=== PATIENT | female | born 1940 | race Caucasian/White ===

== ENCOUNTER 2017-05-26 10:34 | Outpatient (CLI) | payer MEDICARE ==
--- NOTE | 2017-05-26 13:32 | XRAY Report ---
THREE VIEW LEFT SHOULDER: 05/26/2017 CLINICAL INDICATION: Injury, pain. FINDINGS: Internal and external rotational views and a scapular Y view of the left shoulder demonstrate a mildly displaced distal clavicular fracture. No dislocation is seen. No radiopaque foreign body is appreciated in the soft tissues. IMPRESSION: MILDLY DISPLACED DISTAL CLAVICULAR FRACTURE. TD: 05/26/2017 13:31
== END 2017-05-26 10:35 | disposition home or self-care (01) ==
LOC: DI.S 10:34
PROVIDERS: ATTEND Registered Nurse
DX: S42.032A Displaced fracture of lateral end of left clavicle, initial encounter for closed fracture (principal)

== ENCOUNTER 2017-08-23 13:22 | Inpatient (IN) | payer MEDICARE ==
--- NOTE | 2017-08-23 13:40 | ED Physician Documentation ---
History of Present Illness - Stated complaint Stated Complaint: RT SIDE FACIAL SWELLING/TROUBLE SPEAKING - Chief complaint Chief Complaint: General - History obtained from History obtained from: Patient, Family (son) - History of Present Illness Timing: Other (Over the last 2 days she is developed right-sided facial swelling that is slightly painful and right ear pain without changes in her hearing associated with she thinks changes in her voice. She wonders if she might have a fever but she has had no measured fevers. She notes no other new neurologic symptoms, she has had trouble with her left leg but that is not new, that has been going on for years.) Review of Systems Ten Systems: 10 systems reviewed and negative Constitutional: reports: Chills Ears: reports: Ear pain Nose: denies: Rhinorrhea / runny nose, Congestion Cardiac: denies: Chest pain / pressure, Palpitations Respiratory: denies: Dyspnea, Cough PD PAST MEDICAL HISTORY - Past Medical History Cardiovascular: None Respiratory: None Endocrine/Autoimmune: None GI: None : Incontinence HEENT: None Psych: None Musculoskeletal: Osteoarthritis Derm: None - Present Medications Home Medications: Ambulatory Orders Medication Instructions Recorded Confirmed Cephalexin [Keflex] 500 mg PO QID #40 capsule 08/23/17 - Allergies Allergies/Adverse Reactions: Allergies Allergy/AdvReac Type Severity Reaction Status Date / Time penicillin V Allergy Unknown Verified 08/23/17 13:54 Penicillins Allergy Unknown Verified 08/23/17 13:48 Sulfa (Sulfonamide Allergy Unknown Verified 08/23/17 14:56 Antibiotics) - Social History Smoking Status: Never smoker PD ED PE NORMAL - Vitals Vital signs reviewed: Yes - General General: Alert and oriented X 3, No acute distress - HEENT HEENT: PERRL, EOMI, Other (She has warmth and swelling of the right side of the face, that I would describe as mild to moderate basically from the forehead down to the angle of the jaw and back to the ear with mastoid tenderness and significant postauricular adenopathy on the right.) - Neck Neck: Supple, no meningeal sign, No bony TTP - Cardiac Cardiac: RRR, No murmur - Respiratory Respiratory: No respiratory distress, Clear bilaterally - Abdomen Abdomen: Soft, Non tender - Back Back: No CVA TTP, No spinal TTP - Derm Derm: Normal color, Warm and dry - Neuro Neuro: Alert and oriented X 3, Normal speech Eye Opening: Spontaneous Motor: Obeys Commands Verbal: Oriented GCS Score: 15 - Psych Psych: Normal mood, Normal affect Results - Vitals Vitals: Vital Signs - 24 hr 08/23/17 08/23/17 08/23/17 13:27 14:12 16:39 Temperature 37.4 C Heart Rate 77 67 65 Respiratory 18 16 16 Rate Blood Pressure 168/82 H 140/61 H 132/65 H O2 Saturation 100 99 100 08/23/17 18:21 Temperature 38.3 C H Heart Rate 70 Respiratory 18 Rate Blood Pressure 128/53 L O2 Saturation 98 Oxygen O2 Source Room air - Labs Labs: Laboratory Tests 08/23/17 08/23/17 08/23/17 13:30 13:45 13:45 WBC 9.7 RBC 4.16 L Hgb 13.6 Hct 39.4 MCV 94.8 MCH 32.8 H MCHC 34.6 RDW 13.1 Plt Count 144 MPV 8.9 Neut # (Auto) 7.9 H Lymph # (Auto) 1.0 L [place] # (Auto) 0.9 Eos # (Auto) 0.0 Baso # (Auto) 0.0 Absolute Nucleated RBC 0.00 Nucleated RBC % 0.0 Sodium 127 L Potassium 4.0 Chloride 93 L Carbon Dioxide 25 Anion Gap 9.0 BUN 10 Creatinine 0.6 Estimated GFR (MDRD) 97 Glucose 111 H POC Whole Bld Glucose 103 H Calcium 8.7 Total Bilirubin 1.2 H AST 22 ALT 18 Alkaline Phosphatase 54 Total Protein 6.9 Albumin 3.8 Globulin 3.1 Albumin/Globulin Ratio 1.2 Lipase 24 - Rads (name of study) Ct Head and face with Radiology: EMP read contemporaneously (Right facial cellulitis without evidence of abscess or mastoiditis.) PD MEDICAL DECISION MAKING - ED course ED course: 77-year-old woman with right facial cellulitis and a concern for mastoiditis clinically, I spoke with the radiologist here who told me that CT with IV contrast is the preferred modality to screen for this and was done and negative. However prior to discharge which I had planned and receiving 1 g of Rocephin IV she became febrile and very unsteady on her feet. The IV was replaced and vancomycin and blood cultures were ordered and she will be admitted for further evaluation and treatment. Spoke with Dr. Latham for admission at 7:35 PM. Departure - Departure Disposition: [facility] DC/Xfer Clinical Impression: Facial cellulitis Condition: Good Record reviewed to determine appropriate education?: Yes Instructions: ED Cellulitis Facial Prescriptions: Cephalexin [Keflex] 500 mg PO QID #40 capsule Comments: Follow-up with Rain Grossman in a day or 2, return for recheck if unable to follow up with her and not much better. Return anytime if worse or for high fever.
[2017-08-23 13:53] LABS: BASOPHILS % (AUTO) 0.2 %; EOSINOPHILS % (AUTO) 0.1 %; HGB - HEMOGLOBIN 13.6 g/dL (12.0-16.0); MEAN CORPUSCULAR HEMOGLOBIN 32.8 pg (27.0-31.0); MEAN CORPUSCULAR HGB CONC 34.6 g/dL (32.0-36.0); MEAN CORPUSCULAR VOLUME 94.8 fL (81.0-99.0); MEAN PLATELET VOLUME 8.9 fL (7.9-10.8); MONOCYTES # (AUTO) 0.9 10^3/uL (0.0-1.0); MONOCYTES % (AUTO) 8.9 %; NEUTROPHILS # (AUTO) 7.9 10^3/uL (1.5-6.6); NEUTROPHILS % (AUTO) 80.8 %; PLT - PLATELET COUNT 144 10^3/uL (130-450); RED BLOOD COUNT 4.16 10^6/uL (4.20-5.40); RED CELL DISTRIBUTION WIDTH 13.1 % (12.0-15.0); WHITE BLOOD COUNT 9.7 x10^3/uL (4.8-10.8)
[2017-08-23 14:05] LABS: ALBUMIN 3.8 g/dL (3.2-5.5); ALBUMIN/GLOBULIN RATIO 1.2 (1.0-2.2); BILIRUBIN,TOTAL 1.2 mg/dL (0.2-1.0); CALCIUM 8.7 mg/dL (8.5-10.3); CREATININE 0.6 mg/dL (0.4-1.0); TOTAL PROTEIN 6.9 g/dL (6.7-8.2)
[2017-08-23] MEDS ORDERED: IOPAMIDOL-300 100 ML VIAL ONE (15:33)
[2017-08-23] MEDS ORDERED: IOPAMIDOL-300 100 ML VIAL IVP ONE (17:04)
[2017-08-23] MEDS ORDERED: cefTRIAXone 1 GM in SODIUM CHLORIDE 0.9% MINIBAG 100 ML IV STA (17:20)
--- NOTE | 2017-08-23 17:22 | CT Preliminary Report ---
Exam: CT HEAD W/ IMPRESSION: 1. Negative postcontrast CT scan of the head. No acute abnormality. 2. The dural sinuses are patent and enhance normally. [facility] SITE ID: [id number]
--- NOTE | 2017-08-23 17:22 | CT Report ---
EXAM: CT HEAD WITH CONTRAST. EXAM DATE: 08/23/2017 03:53 PM. CLINICAL HISTORY: R facial swelling, ?mastoiditis. Swelling of the face and head. 2 days with nausea and vomiting. COMPARISON: MRI of the brain 12/21/2012. CT scan of the head 06/28/2012. TECHNIQUE: Multiaxial CT images were obtained from the foramen magnum to the vertex following contras t administration. Reformats: Coronal. IV contrast: 80 cc Isovue 300. In accordance with CT protocol optimization, one or more of the following dose reduction techniques w ere utilized for this exam: automated exposure control, adjustment of mA and/or KV based on patient s ize, or use of iterative reconstructive technique. FINDINGS: Parenchyma: No intraparenchymal hemorrhage. No evidence of mass, midline shift, or CT findings of inf arction. Hoffmann-white differentiation is distinct. No abnormal intracranial enhancement Extraaxial Spaces: Normal for age. No subdural or epidural collections identified. Ventricles: Normal in size and position. Sinuses and Orbits: Imaged paranasal sinuses, orbits, and mastoids show no significant abnormality. N ote is made of bilateral lens removal. Bones: No evidence of fracture or calvarial defect. Other: The dural sinuses enhance normally and are patent. IMPRESSION: 1. Negative postcontrast CT scan of the head. No acute abnormality. 2. The dural sinuses are patent and enhance normally. [facility] Referring Provider Line: [phone] SITE ID: [id number]
--- NOTE | 2017-08-23 17:32 | CT Preliminary Report ---
Exam: CT FACIAL BONES W/ IMPRESSION: 1. Right facial cellulitis. This extends from a retroauricular region superficial to the mastoid bone . Inferior extension anterior to the sternocleidomastoid muscle in the anterior cervical space is not ed.. No fluid collection is seen to suggest abscess. 2. Mild enlarged and enhancing right level IIb lymph nodes, consistent with reactive lymphadenopathy. 3. The mastoid air cells and middle ear cavities are clear. Critical test: Findings are discussed with referring physician, Dr. Dominick Morris, on 08/23/2017 at 1721 hrs. [facility] SITE ID: [id number]
--- NOTE | 2017-08-23 17:41 | CT Report ---
EXAM: CT MAXILLOFACIAL WITH CONTRAST EXAM DATE: 08/23/2017 04:50 PM. CLINICAL HISTORY: Right facial swelling, question mastoiditis. Face and head swelling. Two days of na usea and vomiting. COMPARISONS: None. CT scan of the head 08/23/2017. TECHNIQUE: Thin-section axial images were acquired of the face and temporal bones after administratio n of intravenous contrast. Post-processing: Coronal and sagittal reformats. Other: None. IV contrast: 80 mL Isovue-300. In accordance with CT protocol optimization, one or more of the following dose reduction techniques w ere utilized for this exam: automated exposure control, adjustment of mA and/or KV based on patient s ize, or use of iterative reconstructive technique. FINDINGS: Orbits:Symmetric and unremarkable. Soft Tissue: Nodular focus of enhancement is seen in the subcutaneous soft tissues posterior to the r ight ear and superficial to the mastoid process. This measures approximately 8 x 16 x 6 mm in size. M ild surrounding subcutaneous fascial plane edema is noted. Additionally, fascial plane edema is seen extending inferiorly anterior to the sternocleidomastoid muscle deep to the platysma muscle. No rim-e nhancing fluid collection is seen. The infratemporal fossa, parapharyngeal spaces, and visualized retropharyngeal space are unremarkable . The senior manager spaces are unremarkable. Lymph nodes: Mild prominence to upper cervical lymph nodes are seen centered at level IIb. Prominent cervical lymph node posterior to the inferior aspect of the right parotid gland at the anterior char[place] n of the sternocleidomastoid muscle is seen as well. Bones: No fracture or bone lesion. Dentition: Absence of several mandibular and maxillary teeth is seen. No significant dental caries ar e appreciated. No lucency is seen around tooth roots to suggest periapical abscess. Temporomandibular Joints: The temporomandibular joints are symmetric and normally located. Sinuses: No sinusitis evident. Small focus of polypoid mucosal thickening is seen in the posterior-in ferior left maxillary antrum. Otherwise paranasal sinuses are clear. The mastoid air cells and middle ear cavities are pneumatized and clear bilaterally. Small amount of soft tissue density is seen in the EAC bilaterally, consistent with cerumen. Glands: The parotid and submandibular glands are unremarkable. Other: Spondylosis is noted in the upper cervical spine. C2-C3: Osseous fusion of the right facet hasmukh nt is seen. Peripheral osseous fusion of the left facet joint is seen. Peripheral fusion of the disk space is noted. C3-C4: Moderate hypertrophic left-sided degenerative facet change. C4-C5: Moderate hy pertrophic left-sided degenerative facet change. Mild spondylolisthesis. IMPRESSION: 1. Right facial cellulitis. This extends from a retroauricular region superficial to the mastoid bone . Inferior extension anterior to the sternocleidomastoid muscle in the anterior cervical space is not ed. No fluid collection is seen to suggest abscess. 2. Mild enlarged and enhancing right level IIb lymph nodes, consistent with reactive lymphadenopathy. 3. The mastoid air cells and middle ear cavities are clear. Critical test: Findings are discussed with referring physician, Dr. Dominick Morris, on 08/23/2017 at 1721 hrs. [facility] Referring Provider Line: [phone] SITE ID: [id number]
[2017-08-23] MEDS ORDERED: ONDANSETRON ODT 4 MG TABLET TL STA (18:40)
[2017-08-23] MEDS ORDERED: VANCOMYCIN INJ 1.5 GM in SODIUM CHLORIDE 0.9% 500 ML IV STA (18:52)
[2017-08-23] MEDS ORDERED: SODIUM CHLORIDE FLUSH 0.9% 10 ML SYRINGE IVP PRN (19:44)
[2017-08-23] MEDS ORDERED: HYDROcod/ACETAM 5/325 MG TABLET PO PRN (19:44)
[2017-08-23] MEDS ORDERED: TEMAZEPAM 15 MG CAPSULE PO PRN (19:44)
[2017-08-23] MEDS ORDERED: ONDANSETRON 4 MG/2 ML VIAL IVP PRN (19:44)
[2017-08-23] MEDS ORDERED: ACETAMINOPHEN 325 MG TABLET PO PRN (19:44)
[2017-08-23] MEDS ORDERED: VANCOMYCIN PER PHARMACY 0.1 GM in SODIUM CHLORIDE 0.9% 250 ML IV SCH (20:00)
--- NOTE | 2017-08-23 21:34 | ADVANCE CARE PLANNING NOTE ---
Advance Care Planning - Date/Time Date: 08/23/17 Time: 21:10 - Purpose of encounter Text: To establish her Code wishes. - Parties in attendance Parties in attendance: I spoke to the patient. In the room were her two adult sons. - Decisional capacity Decisional capacity of: She has full decisional capacity. 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 She had a L knee Staph infection 5 years ago. She takes no prescription meds. She has R face swelling with a feeling of her kevin not "forming words correctly ", chills, upset stomach and anorexia, for 2 days, after doing every evening massage of her neck lymph nodes for the past 2-3 weeks. - Objective/Medical story Objective/Medical Story: She is a healthy 77 y/o female, who presented with 2 days of fever and chills, upset stomach with anorexia, without vomiting, and swelling of the R face after "massaging her lymph nodes" daily for the last 2-3 weeks. Her son urged her to be seen in the ER and there she was felt to have facial cellulitis without mastoiditis (by CT) and about to be sent home, when she spiked a temp of 38.7 and was woozy getting upright and therefore admitted for management of facial cellulitis and probable dehydration. - Goals of Care Goals of care determinations: Full medical care and return to her lifestyle are desired. She would agree to be intubated. She wants NO defibrillation or CPR. A POLST will be signed today. - Plan Plan: DNR status to be ordered. - Code Status Code Status: Do Not Attempt Resuscitation - Time Spent on Advance Care Planning Time spent on advance care plannin min
[2017-08-23] MEDS: D5NS W/20 MEQ KCL 1,000 ML IV SCH (21:35)
[2017-08-23] MEDS: SODIUM CHLORIDE FLUSH 0.9% 10 ML SYRINGE IVP SCH (23:59)
[2017-08-24 05:25] LABS: BASOPHILS % (AUTO) 0.1 %; EOSINOPHILS % (AUTO) 0.2 %; HGB - HEMOGLOBIN 11.5 g/dL (12.0-16.0); LYMPHOCYTES % (AUTO) 16.4 %; MEAN CORPUSCULAR HEMOGLOBIN 33.2 pg (27.0-31.0); MEAN CORPUSCULAR HGB CONC 34.6 g/dL (32.0-36.0); MONOCYTES # (AUTO) 0.8 10^3/uL (0.0-1.0); MONOCYTES % (AUTO) 12.5 %; NEUTROPHILS # (AUTO) 4.4 10^3/uL (1.5-6.6); NEUTROPHILS % (AUTO) 70.8 %; PLT - PLATELET COUNT 126 10^3/uL (130-450); RED BLOOD COUNT 3.46 10^6/uL (4.20-5.40); RED CELL DISTRIBUTION WIDTH 13.1 % (12.0-15.0); WHITE BLOOD COUNT 6.2 x10^3/uL (4.8-10.8)
[2017-08-24 05:34] LABS: CALCIUM 8.1 mg/dL (8.5-10.3); CREATININE 0.6 mg/dL (0.4-1.0)
[2017-08-24] MEDS: D5NS W/20 MEQ KCL 1,000 ML IV SCH ×2 (08:17→23:40)
[2017-08-24] MEDS: VANCOMYCIN INJ 1 GM in SODIUM CHLORIDE 0.9% 250 ML IV SCH ×2 (08:17→21:15)
[2017-08-24] MEDS: POLYETHYLENE GLYCOL 3350 17 GM PACKET PO SCH (08:24)
[2017-08-24] MEDS: FAMOTIDINE 20 MG TABLET PO SCH (08:24)
--- NOTE | 2017-08-24 11:15 | HISTORY & PHYSICAL EXAMINATION ---
DATE OF SERVICE: 08/23/2017 Physician: Rowena Latham MD HISTORY OF PRESENT ILLNESS: This is a 77-year-old white female who is in relatively good health, takes no prescription medicines. 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 Two weeks ago, she decided to begin doing massage to her neck lymph nodes which she does for 2 minutes every evening before sleep. Two days ago, she noticed a lump postauricular on the right and stated that the following morning there was more swelling in that area, spreading across the entire face anteriorly even up to her forehead. She also then started to develop upset stomach, anorexia, no nausea or vomiting, chills, but never took her temperature and noticed that she could not form her words correctly because her "tongue felt abnormal". Her son noted these symptoms when he visited her today and urged her to come to the emergency room. She was felt to have cellulitis of an unknown source. She did undergo a CT of the head and neck, which showed no evidence of mastoiditis, cellulitis was seen with reactive lymph nodes and she received a dose of IV Rocephin and was to be sent home on antibiotics, but as she got up to be discharged, she felt very woozy and near-syncopal. At this point she also spiked a fever of 38.7 and she is now being admitted. She received blood cultures at this point and then also got a dose of vancomycin as she is being admitted. PAST MEDICAL HISTORY: Left posterior knee cellulitis 5 years ago for which she received a course of IV antibiotics. She has had cataract surgery on her lenses and states that her vision has been poor ever since then with occasional nystagmus. She has had near syncope in the remote past. She otherwise has a negative past medical history. MEDICATIONS AT HOME: None. ALLERGIES: 1. PENICILLIN. 2. SULFA. SOCIAL HISTORY: The patient is a nonsmoker, who never smoked, drinks no alcohol , uses no illicit drugs. She lives alone, is . 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 She was born in [facility] and immigrated to [place] in her 20s, got a Ph.D. in clinical hypnosis and worked as a massage therapist. REVIEW OF SYSTEMS: A comprehensive review of systems was performed and the pertinent positives are above. FAMILY HISTORY: No inherited diseases. PHYSICAL EXAMINATION: GENERAL: White female who appears younger than her age. VITAL SIGNS: Blood pressure 168/82, pulse of 77, temperature is 38.3, respiratory rate 18, room air saturation 98%. HEENT: Reveals mild redness and mild edema of the right cheek, right temporal area and right forehead down to the mandible and slightly to the postauricular area and onto the neck. There are no palpable lymph nodes. There is no streaking. There is no skin abrasion or other disruption of the skin. Normal carotid pulses. No thyromegaly. No carotid bruits. LUNGS: Clear. HEART: Heart sounds normal. No audible murmur. ABDOMEN: Soft, nontender. No rebound or guarding. Normal bowel sounds. No organomegaly. EXTREMITIES: No clubbing, cyanosis or edema. NEUROLOGIC: Intact. Her tongue is able to move freely in all directions and does not appear swollen. LABORATORY DATA: Sodium 127, potassium 4.0, BUN 10, creatinine 0.6. Normal liver tests, normal BUN and creatinine. Lactic acid 0.9. White blood count 9.7 with a left shift, hemoglobin 13.6, platelet count normal at 144. No INR was done. IMAGING: No chest x-ray was done. A head CT and facial bone CT was done and this shows no mastoiditis. There is no abnormality on the head CT. There is facial cellulitis with reactive lymph nodes on the right. She has no caries and no dental abscesses. IMPRESSION/DIAGNOSES 1. Facial cellulitis with source unknown, except recent lymph node "massage". 2. Weakness and symptoms suggestive of orthostasis, probably from dehydration due to #3. 3. Anorexia with 2 days of "stomach upset"." 4. Hyponatremia. 5. Abnormal vision by her description. PLAN: Admit the patient to telemetry because of the near syncope. Begin IV fluids. Follow her CBC and electrolytes and BUN and creatinine. Obtain blood cultures, which were sent from the emergency room now and continue with broad-spectrum antibiotics using Rocephin and vancomycin. Await blood culture results and then adjust her oral antibiotics appropriately to sensitivities. Begin a soft diet because of the "problem with the tongue". Follow her progression or improvement with the swelling clinically before discharge. Consider brain MRI for further evaluation of a possible source for such an extensive cellulitis in a relatively healthy person. Deep venous thrombosis prophylaxis: Sequential compression devices. Code Status: DNR. ATTESTATION: The patient is expected to be discharged or transferred to another facility within 96 hours: Yes. TD: 08/23/2017 22:18 [email or web address]
[2017-08-24] MEDS: SODIUM CHLORIDE FLUSH 0.9% 10 ML SYRINGE IVP SCH ×2 (13:14→17:27)
--- NOTE | 2017-08-24 15:09 | PROVIDER PROGRESS NOTE ---
Subjective - Prog Note Date Prog Note Date: 08/24/17 Prog Note Time: 15:00 - Subjective Pt reports feeling: Improved (The patient says that she is swallowing easier and that her tongue is less swollen and she is finding it easier to speak.) Current Medications - Current Medications Current Medications: Medications Summary Famotidine (Pepcid) 20 mg PO DAILY [facility] Last Admin: 08/24/17 08:24 Dose: Not Given Non-Admin Reason: Patient Refused Potassium Chloride/Dextrose/Sod Cl () 1,000 mls @ 80 mls/hr IV .[id number] [facility] Last Admin: 08/24/17 08:17 Dose: 80 mls/hr Medication Titration Document 08/24/17 08:17 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 (Rec: 08/24/17 08:17 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 [id number]) Titration Intake Container Volume 1,000 Elapsed Time 10h 42m Titration Dosing IV Rate 80 Increase/Decrease Started/Running Cumulative Dose Not Applicable Total Intake (Rx) 856 Volume Adjustment/Waste 0 Vancomycin HCl 1 gm/ Sodium (Chloride) 250 mls @ 166 mls/hr IV Q12H [facility] Last Infusion: 08/24/17 09:50 Dose: 0 mls/hr Medication Titration Document 08/24/17 09:50 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 (Rec: 08/24/17 10:40 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 [id number]) Titration Intake Titration Intake 250 Cumulative Intake 250 Container Volume 0 Elapsed Time 1h 33m Titration Dosing IV Rate 0 Increase/Decrease Infused Cumulative Dose 0 Total Intake (Rx) 250 Volume Adjustment/Waste 0 Polyethylene Glycol (Miralax) 17 gm PO DAILY [facility] Last Admin: 08/24/17 08:24 Dose: Not Given Non-Admin Reason: Patient Refused Sodium Chloride (Normal Saline Flush 0.9%) 10 ml IVP 0100,0900,1700 [facility] Last Admin: 08/24/17 13:14 Dose: Discontinued Medications Ceftriaxone Sodium 1 gm/ (Sodium Chloride) 100 mls @ 200 mls/hr IV ONCE STA Stop: 08/23/17 17:49 Last Infusion: 08/23/17 18:32 Dose: 0 mls/hr Medication Titration Document 08/23/17 18:32 KMK (Rec: 08/23/17 18:32 KMK [id number]) Titration Intake Titration Intake 100 Cumulative Intake 100 Container Volume 0 Elapsed Time 1h 0m Titration Dosing IV Rate 0 Increase/Decrease Infused Cumulative Dose 0 Total Intake (Rx) 100 Volume Adjustment/Waste 0 Vancomycin HCl 1.5 gm/ Sodium (Chloride) 500 mls @ 250 mls/hr IV ONCE STA Stop: 08/23/17 20:51 Last Infusion: 08/23/17 21:17 Dose: 0 mls/hr Medication Titration Document 08/23/17 21:17 EJG (Rec: 08/23/17 21:40 EJG [id number]) Titration Intake Titration Intake 500 Cumulative Intake 500 Container Volume 0 Elapsed Time 2h 0m Titration Dosing IV Rate 0 Increase/Decrease Infused Cumulative Dose 0 Total Intake (Rx) 500 Volume Adjustment/Waste 0 Vancomycin HCl 0.1 gm/ Sodium (Chloride) 250 mls @ 167 mls/hr IV Q400H [facility] Last Admin: 08/23/17 21:40 Dose: Iopamidol (Isovue-300) 80 ml IVP ONCE ONE Stop: 08/23/17 17:05 Last Admin: 08/23/17 17:04 Dose: 80 ml Ondansetron HCl (Zofran Odt) 4 mg TL ONCE STA Stop: 08/23/17 18:41 Last Admin: 08/23/17 18:43 Dose: 4 mg Active Medications Generic Name Dose Route Start Last Admin Trade Name Freq PRN Reason Stop Dose Admin Acetaminophen 650 mg 08/23/17 19:44 Tylenol PO Q4HR PRN Pain or Fever > 38C (100.4F) Hydrocodone Bitart/Acetaminophen 1 tab 08/23/17 19:44 [place] 5/325 PO Q4HR PRN Pain 5 to 7 Famotidine 20 mg 08/24/17 09:00 08/24/17 08:24 Pepcid PO Not Given DAILY [facility] Potassium Chloride/Dextrose/Sod Cl 1,000 mls @ 80 mls/hr 08/23/17 20:00 08/24 08:17 IV 80 mls/hr .[id number] [facility] Administration Ceftriaxone Sodium 1 gm/ 100 mls @ 200 mls/hr 08/24/17 18:00 Sodium Chloride IV Q24H [facility] Vancomycin HCl 1 gm/ Sodium 250 mls @ 166 mls/hr 08/24/17 09:00 08/24/17 09: 50 Chloride IV Infused Q12H [facility] Infusion Ondansetron HCl 4 mg 08/23/17 19:44 Zofran Inj IVP Q6HR PRN Nausea / Vomiting Polyethylene Glycol 17 gm 08/24/17 09:00 08/24/17 08:24 Miralax PO Not Given DAILY [facility] Sodium Chloride 10 ml 08/23/17 19:44 Normal Saline Flush 0.9% IVP PRN PRN NEEDED PER PROVIDER ORDERS Sodium Chloride 10 ml 08/24/17 01:00 08/24/17 13:14 Normal Saline Flush 0.9% IVP Not Given 0100,0900,1700 [facility] Temazepam 15 mg 08/23/17 19:44 Restoril PO QPM PRN Insomnia No Known Home Medications [No Known Home Medications] 08/24/17 Objective - Vital Signs/Intake & Output Reviewed Vital Signs: Yes Vital Signs: Vital Signs x48h Temp Pulse Resp BP Pulse Ox 08/24/17 07:29 36.6 C 66 20 101/52 L 98 Intake & Output: Intake & Output 08/21/17 08/22/17 08/23/17 08/24/17 23:59 23:59 23:59 23:59 Intake Total 620 1346 Output Total 300 Balance 620 1046 - Objective General Appearance: positive: No acute distress, Alert Eyes Bilateral: positive: Normal inspection, PERRL, EOMI, No lid inflammation, Conjunctivae nml, No scleral icterus ENT: positive: ENT inspection nml, Pharynx nml, No signs of dehydration, Other ( Erysipelas noted to right side of face) Neck: positive: Nml inspection, Thyroid nml, No JVD, Trachea midline. negative : Thyromegaly Respiratory: positive: Chest non-tender, No respiratory distress, Breath sounds nml. negative: Wheezes, Rales, Rhonchi Cardiovascular: positive: Regular rate & rhythm, No murmur, No gallop Abdomen: positive: Non-tender, No organomegaly, Nml bowel sounds, No distention. negative: Guarding, Rebound Back: positive: Nml inspection. negative: CVA tenderness (R), CVA tenderness (L ) Skin: positive: Color nml, No rash, Warm, Dry. negative: Cyanosis Extremities: positive: Non-tender, Full ROM, Nml appearance, No pedal edema Neurologic/Psychiatric: positive: Oriented x3, CN's nml (2-12), Motor nml, Sensation nml, Mood/affect nml - Lab Results Fish Bones: 08/24/17 05:10 08/24/17 05:10 Other Labs: Lab Results x24hrs 08/24/17 08/24/17 Range/Units 05:10 05:10 WBC 6.2 (4.8-10.8) x10^3/uL RBC 3.46 L (4.20-5.40) 10^6/uL Hgb 11.5 L (12.0-16.0) g/dL Hct 33.2 L (37.0-47.0) % MCV 96.0 (81.0-99.0) fL MCH 33.2 H (27.0-31.0) pg MCHC 34.6 (32.0-36.0) g/dL RDW 13.1 (12.0-15.0) % Plt Count 126 L (130-450) 10^3/uL MPV 9.0 (7.9-10.8) fL Neut # (Auto) 4.4 (1.5-6.6) 10^3/uL Lymph # (Auto) 1.0 L (1.5-3.5) 10^3/uL [place] # (Auto) 0.8 (0.0-1.0) 10^3/uL Eos # (Auto) 0.0 (0.0-0.7) 10^3/uL Baso # (Auto) 0.0 (0.0-0.1) 10^3/uL Absolute Nucleated RBC 0.00 x10^3/uL Nucleated RBC % 0.0 /100WBC Sodium 130 L (135-145) mmol/L Potassium 3.5 (3.5-5.0) mmol/L Chloride 99 L (101-111) mmol/L Carbon Dioxide 25 (21-32) mmol/L Anion Gap 6.0 (6-13) BUN 8 (6-20) mg/dL Creatinine 0.6 (0.4-1.0) mg/dL Estimated GFR (MDRD) 97 (>89) Glucose 120 H (70-100) mg/dL Calcium 8.1 L (8.5-10.3) mg/dL ABX Reporting Has patient been on IV antibiotics over the past 48 hours?: Yes Assessment/Plan - Problem List (1) Facial cellulitis Impression: The patient is on vancomycin and ceftriaxone and is showing significant improvement after only 12 hours. We will continue with the current medication regimen and will consider stopping vancomycin and a day or 2. The patient says she has less swelling in her mouth and she is finding it easier to speak and eat.
[2017-08-24] MEDS: cefTRIAXone 1 GM in SODIUM CHLORIDE 0.9% MINIBAG 100 ML IV SCH (17:27)
[2017-08-25] MEDS: SODIUM CHLORIDE FLUSH 0.9% 10 ML SYRINGE IVP SCH ×3 (02:42→11:39)
[2017-08-25 05:41] LABS: CALCIUM 8.2 mg/dL (8.5-10.3); CREATININE 0.4 mg/dL (0.4-1.0)
[2017-08-25 05:42] LABS: BASOPHILS # (AUTO) 0.1 10^3/uL (0.0-0.1); BASOPHILS % (AUTO) 1.1 %; EOSINOPHILS # (AUTO) 0.2 10^3/uL (0.0-0.7); EOSINOPHILS % (AUTO) 4.9 %; HGB - HEMOGLOBIN 11.8 g/dL (12.0-16.0); LYMPHOCYTES # (AUTO) 1.5 10^3/uL (1.5-3.5); LYMPHOCYTES % (AUTO) 30.3 %; MEAN CORPUSCULAR HEMOGLOBIN 33.1 pg (27.0-31.0); MEAN CORPUSCULAR HGB CONC 34.5 g/dL (32.0-36.0); MEAN CORPUSCULAR VOLUME 95.9 fL (81.0-99.0); MEAN PLATELET VOLUME 9.6 fL (7.9-10.8); MONOCYTES # (AUTO) 0.6 10^3/uL (0.0-1.0); MONOCYTES % (AUTO) 13.2 %; NEUTROPHILS # (AUTO) 2.4 10^3/uL (1.5-6.6); NEUTROPHILS % (AUTO) 50.5 %; PLT - PLATELET COUNT 127 10^3/uL (130-450); RED BLOOD COUNT 3.57 10^6/uL (4.20-5.40); RED CELL DISTRIBUTION WIDTH 13.3 % (12.0-15.0); WHITE BLOOD COUNT 4.9 x10^3/uL (4.8-10.8)
[2017-08-25] MEDS: POLYETHYLENE GLYCOL 3350 17 GM PACKET PO SCH (07:56)
[2017-08-25 08:38] LABS: VANCOMYCIN,TROUGH 9.3 ug/mL (10.0-20.0)
[2017-08-25] MEDS ORDERED: CLINDAMYCIN 150 MG CAPSULE PO SCH ×2 (09:00→11:30)
[2017-08-25] MEDS: VANCOMYCIN INJ 1 GM in SODIUM CHLORIDE 0.9% 250 ML IV SCH (10:18)
[2017-08-25] MEDS: FAMOTIDINE 20 MG TABLET PO SCH (10:20)
[2017-08-25] MEDS ORDERED: VANCOMYCIN INJ 500 MG in SODIUM CHLORIDE 0.9% MINIBAG 100 ML IV SCH (11:30)
[2017-08-25 15:39] VITALS: BP 131/59
[2017-08-25] MEDS: D5NS W/20 MEQ KCL 1,000 ML IV SCH (15:59)
--- NOTE | 2017-08-25 17:06 | Discharge Plan ---
Discharge Plan Disposition: Home, Self Care Condition: Good Prescriptions: Clindamycin [Cleocin] 300 mg PO 0200,1000,1800 #21 capsule Diet: Regular Activity Restrictions: Activity as Tolerated Shower Restrictions: No Driving Restrictions: No Weight Bearing: Full Weight Instruction Topics: ED Cellulitis Facial Additional Instructions or Follow Up instructions: Follow-up with Rain Grossman in a day or 2, return for recheck if unable to follow up with her and not much better. Return anytime if worse or for high fever. No Smoking: If you smoke, Please STOP! Call for help.
[2017-08-25] MEDS: cefTRIAXone 1 GM in SODIUM CHLORIDE 0.9% MINIBAG 100 ML IV SCH (17:36)
--- NOTE | 2017-08-25 17:43 | DISCHARGE SUMMARY ---
Discharge Summary Admit Date: 08/23/17 Discharge Date: 08/25/17 Discharging Provider: Lelia Chamberlain DO Primary Care Provider: Corina Grossman Code Status: Do Not Attempt Resuscitation Condition at Discharge: Good Discharge Disposition: 01 Home, Self Care - DIAGNOSES Admission Diagnoses: 1. Facial cellulitis 2. Weakness and symptoms suggestive of orthostasis 3. Anorexia with 2 days of "upset stomach" 4. Hyponatremia 5. Abnormal vision by her description Discharge Diagnoses with Status of Each Condition: 1. Facial cellulitis - Resolving. The erysipelas and swelling to the face is almost completely resolved as is the erythema. At this point I believe the patient may be safely discharged home on oral clindamycin which she will take for a week and then follow-up with her primary care physician. 2. Weakness and symptoms suggestive of orthostasis- This was likely related to dehydration state and the anorexia noted in #3. The patient has not experienced any similar symptoms since she received IV fluids on admission. 3. Anorexia with 2 days of "upset stomach"- Resolved, the patient is eating a regular diet without any difficulty. Initially she had difficulty with swelling in her mouth and tongue but this has resolved. 4. Hyponatremia -Corrected. 5. Abnormal vision by her description- Resolved with the rest of the patient's symptoms. - HPI History of Present Illness: From Dr. Latham's H&P: This is a 77-year-old white female who is in relatively good health, takes no prescription medicines. 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 2 weeks ago, she decided to begin doing massage to her neck lymph nodes which she does for 2 minutes every evening before sleep. 2 days ago she noticed a post auricular lump on the right side and stated that the following morning there was more swelling in that area, spreading across the entire face anteriorly even up to her forehead. She also then started to develop upset stomach, anorexia, no nausea or vomiting, chills, but never took her temperature and noticed that she could not form her words correctly because her her "tongue felt abnormal". Her son noted the symptoms when he visited her today and urged her to come to the emergency room. She was felt to have cellulitis of an unknown source. She did undergo a CT of the head and neck, which showed no evidence of mastoiditis, cellulitis was seen with reactive lymph nodes and she received a dose of IV Rocephin and was to be sent home on antibiotics, but as she got up to be discharged, she felt very woozy and near syncopal. At this point she also spiked a fever of 38.7 and is now being admitted. She received blood cultures at this point and then also got a dose of vancomycin as she is being admitted. - HOSPITAL COURSE Hospital Course: The patient was admitted to medical surgical bed and placed on IV fluids and antibiotics. Her symptoms began resolving almost immediately. After 3 days she asked to be sent home and it was felt that she was stable to be discharged home on oral clindamycin. - ALLERGIES Allergies/Adverse Reactions: Allergies Allergy/AdvReac Type Severity Reaction Status Date / Time penicillin V Allergy Unknown Verified 08/23/17 13:54 Penicillins Allergy Unknown Verified 08/23/17 13:48 Sulfa (Sulfonamide Allergy Unknown Verified 08/23/17 14:56 Antibiotics) - MEDICATIONS Home Medications: Ambulatory Orders Medication Instructions Recorded Confirmed Clindamycin [Cleocin] 300 mg PO 0200,1000,1800 #21 08/25/17 capsule Polyethylene Glycol 3350 [Miralax] 17 gm PO DAILY packet 08/25/17 - PHYSICAL EXAM AT DISCHARGE General Appearance: positive: No acute distress, Alert Eyes Bilateral: positive: Normal inspection, PERRL, EOMI, No lid inflammation, Conjunctivae nml, No scleral icterus ENT: positive: ENT inspection nml, Pharynx nml, No signs of dehydration, Other ( Slightly raised rash, much improved- nearly completely resolved) Neck: positive: Nml inspection, Thyroid nml, No JVD, Trachea midline. negative : Thyromegaly Respiratory: positive: Chest non-tender, No respiratory distress, Breath sounds nml. negative: Wheezes, Rales, Rhonchi Cardiovascular: positive: Regular rate & rhythm, No murmur, No gallop Peripheral Pulses: positive: 1+ Abdomen: positive: Non-tender, No organomegaly, Nml bowel sounds, No distention. negative: Guarding, Rebound Back: positive: Nml inspection. negative: CVA tenderness (R), CVA tenderness (L ) Skin: positive: Color nml, No rash, Warm, Dry. negative: Cyanosis Extremities: positive: Non-tender, Full ROM, Nml appearance, No pedal edema Neurologic/Psychiatric: positive: Oriented x3, CN's nml (2-12), Motor nml, Sensation nml, Mood/affect nml - LABS Result Diagrams: 08/25/17 04:40 08/25/17 04:40 - DIAGNOSTIC IMAGING Diagnostic Imaging Results: Final report reviewed Diagnostic Imaging Results Comments: EXAM: CT HEAD WITH CONTRAST. EXAM DATE: 08/23/2017 03:53 PM. CLINICAL HISTORY: R facial swelling, ?mastoiditis. Swelling of the face and head. 2 days with nausea and vomiting. COMPARISON: MRI of the brain 12/21/2012. CT scan of the head 06/28/2012. TECHNIQUE: Multiaxial CT images were obtained from the foramen magnum to the vertex following contrast administration. Reformats: Coronal. IV contrast: 80 cc Isovue 300. In accordance with CT protocol optimization, one or more of the following dose reduction techniques were utilized for this exam: automated exposure control, adjustment of mA and/or KV based on patient size, or use of iterative reconstructive technique. FINDINGS: Parenchyma: No intraparenchymal hemorrhage. No evidence of mass, midline shift, or CT findings of infarction. Hofmfann-white differentiation is distinct. No abnormal intracranial enhancement Extraaxial Spaces: Normal for age. No subdural or epidural collections identified. Ventricles: Normal in size and position. Sinuses and Orbits: Imaged paranasal sinuses, orbits, and mastoids show no significant abnormality. Note is made of bilateral lens removal. Bones: No evidence of fracture or calvarial defect. Other: The dural sinuses enhance normally and are patent. IMPRESSION: 1. Negative postcontrast CT scan of the head. No acute abnormality. 2. The dural sinuses are patent and enhance normally. EXAM: CT MAXILLOFACIAL WITH CONTRAST EXAM DATE: 08/23/2017 04:50 PM. CLINICAL HISTORY: Right facial swelling, question mastoiditis. Face and head swelling. Two days of nausea and vomiting. COMPARISONS: None. CT scan of the head 08/23/2017. TECHNIQUE: Thin-section axial images were acquired of the face and temporal bones after administration of intravenous contrast. Post-processing: Coronal and sagittal reformats. Other: None. IV contrast: 80 mL Isovue-300. In accordance with CT protocol optimization, one or more of the following dose reduction techniques were utilized for this exam: automated exposure control, adjustment of mA and/or KV based on patient size, or use of iterative reconstructive technique. FINDINGS: Orbits:Symmetric and unremarkable. Soft Tissue: Nodular focus of enhancement is seen in the subcutaneous soft tissues posterior to the right ear and superficial to the mastoid process. This measures approximately 8 x 16 x 6 mm in size. Mild surrounding subcutaneous fascial plane edema is noted. Additionally, fascial plane edema is seen extending inferiorly anterior to the sternocleidomastoid muscle deep to the platysma muscle. No rim-enhancing fluid collection is seen. The infratemporal fossa, parapharyngeal spaces, and visualized retropharyngeal space are unremarkable. The geriatric care manager spaces are unremarkable. Lymph nodes: Mild prominence to upper cervical lymph nodes are seen centered at level IIb. Prominent cervical lymph node posterior to the inferior aspect of the right parotid gland at the anterior margin of the sternocleidomastoid muscle is seen as well. Bones: No fracture or bone lesion. Dentition: Absence of several mandibular and maxillary teeth is seen. No significant dental caries are appreciated. No lucency is seen around tooth roots to suggest periapical abscess. Temporomandibular Joints: The temporomandibular joints are symmetric and normally located. Sinuses: No sinusitis evident. Small focus of polypoid mucosal thickening is seen in the posterior- inferior left maxillary antrum. Otherwise paranasal sinuses are clear. The mastoid air cells and middle ear cavities are pneumatized and clear bilaterally. Small amount of soft tissue density is seen in the EAC bilaterally, consistent with cerumen. Glands: The parotid and submandibular glands are unremarkable. Other: Spondylosis is noted in the upper cervical spine. C2-C3: Osseous fusion of the right facet joint is seen. Peripheral osseous fusion of the left facet joint is seen. Peripheral fusion of the disk space is noted. C3-C4: Moderate hypertrophic left-sided degenerative facet change. C4-C5: Moderate hypertrophic left-sided degenerative facet change. Mild spondylolisthesis. IMPRESSION: 1. Right facial cellulitis. This extends from a retroauricular region superficial to the mastoid bone. Inferior extension anterior to the sternocleidomastoid muscle in the anterior cervical space is noted. No fluid collection is seen to suggest abscess. 2. Mild enlarged and enhancing right level IIb lymph nodes, consistent with reactive lymphadenopathy. 3. The mastoid air cells and middle ear cavities are clear. - FOLLOW UP Follow Up: Follow-up with Corina Grosmsan in 1 week. If the swelling or rash starts to come back come back to the emergency room immediately. - TIME SPENT Time Spent in Discharge (Minutes): 40
[2017-08-25] MEDS ORDERED: cefTRIAXone 1 GM VIAL ONE (17:44)
== END 2017-08-25 19:48 | disposition home or self-care (01) | DRG 603 ==
LOC: ED 13:22 → MS2 19:44
PROVIDERS: ADMIT Internal Medicine; ATTEND Hospitalist
DX: L03.211 Cellulitis of face (principal); R32 Unspecified urinary incontinence; M19.90 Unspecified osteoarthritis, unspecified site; E87.1 Hypo-osmolality and hyponatremia; E86.0 Dehydration; R63.0 Anorexia; K30 Functional dyspepsia; H53.9 Unspecified visual disturbance; Z66 Do not resuscitate; Z68.22 Body mass index [BMI] 22.0-22.9, adult
CPT/HCPCS: 36415; 70460; 70487; 80048; 80053; 80202; 83605; 83690; 85025; 87040; 87640; 96365; 96367; 99283; 99284

== ENCOUNTER 2022-01-18 16:04 | Emergency (ER) | payer MEDICARE ==
--- OUTSIDE RECORDS SUMMARY | 2022-01-18 16:34 | EXTERNAL MEDICAL SUMMARY RPT | Continuity of Care Document ---
:1940 Author Organization [facility] Address [address] [place] [address] Phone Care Team Providers Name Role Phone Unavailable Unavailable Unavailable Vick Soto Pa-C Unavailable Unavailable Allergies No information. Encounters No information. Functional Status No information. Immunizations No information. Medications No information. Problems No information. Procedures date description facility +0000 Visit Code Hold [facility] Results/Labs No information. Social History date description facility +0000 Never smoker [facility] Vital Signs date measurement value units +0000 BMI BMI 17.87 kg/m2 [id number] BP_diastolic BP_diastolic 80 mmHg +0000 BP_systolic BP_systolic 142 mmHg [id number]+0000 heart_rate heart_rate 79 /min [id number]+0000 height_metric height_metric 175.26 cm [id number]+0000 height_standard height_standard 69 in [id number]+0000 respiration_rate respiration_rate 14 /min [id number]+0000 temperature_metric temperature_metric 36.44 C [id number]+0000 temperature_standard temperature_standard 9 7.6 F [id number]+0000 weight_metric weight_metric 54.7 kg [id number]+0000 weight_standard weight_standard 120.6 lb
[2022-01-18 18:08] LABS: BASOPHILS # (AUTO) 0.1 10^3/uL (0.0-0.1); BASOPHILS % (AUTO) 1.3 %; EOSINOPHILS # (AUTO) 0.4 10^3/uL (0.0-0.7); EOSINOPHILS % (AUTO) 6.2 %; HGB - HEMOGLOBIN 13.6 g/dL (12.0-16.0); LYMPHOCYTES # (AUTO) 1.4 10^3/uL (1.5-3.5); LYMPHOCYTES % (AUTO) 22.1 %; MEAN CORPUSCULAR HEMOGLOBIN 31.8 pg (27.0-31.0); MEAN CORPUSCULAR HGB CONC 33.2 g/dL (32.0-36.0); MEAN CORPUSCULAR VOLUME 95.8 fL (81.0-99.0); MEAN PLATELET VOLUME 9.5 fL (7.9-10.8); MONOCYTES # (AUTO) 0.6 10^3/uL (0.0-1.0); MONOCYTES % (AUTO) 9.5 %; NEUTROPHILS # (AUTO) 3.9 10^3/uL (1.5-6.6); NEUTROPHILS % (AUTO) 60.6 %; PLT - PLATELET COUNT 209 10^3/uL (130-450); RED BLOOD COUNT 4.28 10^6/uL (4.20-5.40); RED CELL DISTRIBUTION WIDTH 12.7 % (12.0-15.0); WHITE BLOOD COUNT 6.3 x10^3/uL (4.8-10.8)
[2022-01-18 18:24] LABS: ALBUMIN 4.3 g/dL (3.2-5.5); ALBUMIN/GLOBULIN RATIO 1.7 (1.0-2.2); BILIRUBIN,TOTAL 0.8 mg/dL (0.2-1.0); CALCIUM 9.2 mg/dL (8.5-10.3); CREATININE 0.5 mg/dL (0.4-1.0); MAGNESIUM 2.2 mg/dL (1.7-2.8); TOTAL PROTEIN 6.9 g/dL (6.7-8.2)
--- NOTE | 2022-01-18 18:48 | CT Report ---
PROCEDURE: HEAD WO INDICATIONS: falls with striking head, off balance TECHNIQUE: Noncontrast 4.5 mm thick angled axial sections acquired from the foramen magnum to the vertex. For r adiation dose reduction, the following was used: automated exposure control, adjustment of mA and/or kV according to patient size. COMPARISON: Head CTA 08/23/2017. FINDINGS: Image quality: Excellent. CSF spaces: Basal cisterns are patent. No extra-axial fluid collections. Ventricles are normal in size and shape. Brain: No midline shift. No intracranial masses or hemorrhage. No area of hypodensity in a vascula r distribution to suggest acute infarction. There is periventricular hypodensity consistent with guest room attendant darrel microvascular ischemic disease. Age-related parenchymal loss. Skull and face: Calvarium and visualized facial bones are intact, without suspicious lesions. Sinuses: Visualized sinuses and mastoids are clear. IMPRESSION: No acute intracranial abnormality. Reviewed by: Jamey Trevino MD on 01/18/2022 5:47 PM CALLIE Approved by: Jamey Trevino MD on 01/18/2022 5:47 PM AKDES Station ID: [id number]
--- NOTE | 2022-01-18 19:51 | ED Physician Documentation ---
History of Present Illness - Stated complaint Stated Complaint: FALLS/HIT HEAD - Chief complaint Chief Complaint: Trauma Hd/Nk - Additonal information Additional information: 81-year-old female presents emergency department for evaluation of recurrent falls. The patient fell twice yesterday and once about 10 days ago. 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 She tells me that they have diagnosed this disorder because she has had at least 12 different concussions during her lifetime. She has previously been seen by 2 different neurologists with no explanation to her findings. She reportedly tells me that she had an MRI 1 year ago that was negative. She also states that for 10 years she has had diplopia that resolves when she closes one of her eyes. She has been seen by numerous cage/vault supervisor with no fix to this problem. She is had no lapse in consciousness. She has had no chest pain or shortness of air. She typically walks with a walker and sometimes just falls or trips. She is scheduled to establish with a new primary care doctor this upcoming Monday but when they were scheduling the appointment the staff told them to come to the ER to get a better look at her symptoms. Review of Systems Constitutional: denies: Fever, Chills Eyes: reports: Other (Diplopia). denies: Loss of vision Ears: reports: Loss of hearing Nose: reports: Reviewed and negative Throat: reports: Reviewed and negative Respiratory: reports: Reviewed and negative GI: reports: Reviewed and negative : reports: Reviewed and negative Neurologic: reports: Generalized weakness. 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: None : Incontinence HEENT: Chronic vision loss Psych: None Musculoskeletal: Osteoarthritis Derm: None Other Past Medical History: "degenerative cerebellar process." - Past Surgical History Past Surgical History: Yes HEENT: Cataracts - Present Medications Home Medications: Ambulatory Orders Medication Instructions Recorded Confirmed No Known Home Medications 01/18/22 01/18/22 - Allergies Allergies/Adverse Reactions: Allergies Allergy/AdvReac Type Severity Reaction Status Date / Time penicillin V Allergy Unknown Verified 01/18/22 16:07 Penicillins Allergy Unknown Verified 01/18/22 16:07 Sulfa (Sulfonamide Allergy Unknown Verified 01/18/22 16:07 Antibiotics) - Social History Does the pt smoke?: No Smoking Status: Never smoker Does the pt drink ETOH?: No Does the pt have substance abuse?: No - Immunizations Immunizations are current?: No Immunizations: Other immun not current PD ED PE NORMAL - General General: Alert and oriented X 3, No acute distress, Well developed/nourished - HEENT HEENT: Atraumatic, PERRL, EOMI (No nystagmus. Patient does have diplopia that resolves with a closure of either eye), Moist mucous membranes - Neck Neck: Supple, no meningeal sign, No adenopathy - Cardiac Cardiac: RRR, No murmur - Respiratory Respiratory: No respiratory distress, Clear bilaterally - Abdomen Abdomen: Normal bowel sounds, Soft - Back Back: No CVA TTP, No spinal TTP - Derm Derm: Normal color, Warm and dry - Extremities Extremities: No deformity, No tenderness to palpate, Normal ROM s pain - Neuro Neuro: directional drill operator 2-12 intact, No motor deficit, No sensory deficit, Normal speech, Other (Steady gait with a walker.) Results - Vitals Vitals: Vital Signs - 24 hr 01/18/22 01/18/22 16:09 19:55 Temperature 36.9 C Heart Rate 77 72 Respiratory 18 Rate Blood Pressure 150/75 H 144/66 H O2 Saturation 98 Oxygen O2 Source Room air - Labs Labs: Laboratory Tests 01/18/22 01/18/22 18:05 18:05 WBC 6.3 RBC 4.28 Hgb 13.6 Hct 41.0 MCV 95.8 MCH 31.8 H MCHC 33.2 RDW 12.7 Plt Count 209 MPV 9.5 Neut # (Auto) 3.9 Lymph # (Auto) 1.4 L Divide # (Auto) 0.6 Eos # (Auto) 0.4 Baso # (Auto) 0.1 Absolute Nucleated RBC 0.00 Nucleated RBC % 0.0 Sodium 132 L Potassium 4.0 Chloride 98 L Carbon Dioxide 26 Anion Gap 8.0 BUN 12 Creatinine 0.5 Estimated GFR (MDRD) 119 Glucose 112 H Calcium 9.2 Magnesium 2.2 Total Bilirubin 0.8 AST 20 ALT 19 Alkaline Phosphatase 84 Total Protein 6.9 Albumin 4.3 Globulin 2.6 Albumin/Globulin Ratio 1.7 Lipase 34 - Rads (name of study) CT head Radiology: Final report received (No acute intracranial process) PD MEDICAL DECISION MAKING - ED course Complexity details: reviewed results, re-evaluated patient, considered differential, d/w patient, d/w family ED course: 81-year-old female presents the emergency department for evaluation of recurrent falls concerns for concussion. Reportedly has been diagnosed with diplopia. Also has been told she has a progressive cerebellar disorder due to precurrent concussions. On exam today she has a normal gait with a walker. Nonfocal neuro exam. CT was negative. Obtained labs would not elicit an etiology for the symptoms though I think the patient would benefit from a new MRI. However an emergent one is not indicated today as patient has no strokelike symptoms. She is not vertiginous. I am not suspicious that she is having a cerebellar stroke. This problem seems to be recurrent over the last 10 years. I think that she would benefit from referral to a neurologist for repeat evaluation though an emergent evaluation is not indicated at this time. Patient and her son had a lengthy discussion with this provider. They are frustrated over the inability to properly diagnose her mom but we discussed the limitations to care available in the ER and they understand. She is at this time discharged home in stable clinical condition. Departure - Departure Disposition: 01 Home, Self Care Clinical Impression: Recurrent falls while walking Condition: Stable Record reviewed to determine appropriate education?: Yes Comments: You are seen today in the emergency department because you had 2 falls yesterday and another fall 10 days ago. You reported to me that you have been diagnosed with a progressive cerebellar disorder. Cerebellar disorders will typically make people at prone for falls as they are often unsteady and have poor balance. The CT completed of your head today did not show any worrisome findings. Your CBC and electrolytes today were also without worrisome findings. When you see your primary care doctor on Monday I do recommend that you ask for a new referral to neurology. You would likely benefit from a new MRI of your head. I also feel that you may benefit from being seen by a neuro- cage/vault supervisor to discuss your double vision though at this time I suspect the double vision is coming from weak muscles around the eyes as it resolves when you close either eye. A physical therapist that deals specifically with gait and balance disorders could be very helpful moving forward. I do recommend that you reside with your family in case you have other falls. Unwitnessed falls can be life-threatening in the elderly.
[2022-01-18 19:55] VITALS: BP 144/66
== END 2022-01-18 20:17 | disposition home or self-care (01) ==
LOC: ED 16:04
DX: S09.90XA Unspecified injury of head, initial encounter (principal); W18.30XA Fall on same level, unspecified, initial encounter; R53.1 Weakness; Z91.81 History of falling
CPT/HCPCS: 36415; 80053; 83690; 83735; 85025; 99283; 99284

== ENCOUNTER 2022-04-11 09:22 | Outpatient (CLI) | payer MEDICARE | END 2022-04-11 09:23 | disposition critical access hospital (66) | LOC: EMS 09:22 | DX: M54.50 Low back pain, unspecified (principal); W10.8XXA Fall (on) (from) other stairs and steps, initial encounter; Y93.01 Activity, walking, marching and hiking; Y92.008 Other place in unspecified non-institutional (private) residence as the place of occurrence of the external cause | CPT/HCPCS: A0425; A0429 ==

== ENCOUNTER 2022-04-11 09:57 | Emergency (ER) | payer MEDICARE ==
--- OUTSIDE RECORDS SUMMARY | 2022-04-11 10:33 | EXTERNAL MEDICAL SUMMARY RPT | Continuity of Care Document ---
:1940 Author Organization [facility] [address] [place] [address] Phone Care Team Providers Name Role Phone Unavailable Unavailable Unavailable Britatny Lopez, Vick Unavailable Unavailable Strempel Patient Registrar, Haven Unavailable Unavai lable Strempel Patient Registrar, Haven Unavailable Unavai lable Strempel Patient Registrar, Haven Unavailable Unavai lable Allergies No information. Encounters No information. Functional Status No information. Immunizations No information. Medications No information. Problems date description facility 2022-01-18 00:00 Insomnia [facility] 2022-01-18 00:00 Insomnia [facility] 2022-01-18 00:00 Insomnia [facility] 2022-01-18 00:00 Cerebellar disorder [facility] 2022-01-18 00:00 Cerebellar disorder [facility] 2022-01-18 00:00 Cerebellar disorder [facility] 2022-01-18 00:00 Cerebellar disorder [facility] 2022-01-18 00:00 Unspecified condition of brain [facility] 2022-01-18 00:00 Unspecified condition of brain [facility] 2022-01-18 00:00 Unspecified condition of brain [facility] 2022-01-18 00:00 Unspecified condition of brain [facility] 2022-01-18 00:00 Osteoporosis [facility] 2022-01-18 00:00 Osteoporosis [facility] 2022-01-18 00:00 Osteoporosis [facility] 2022-01-18 00:00 Osteoporosis, unspecified [facility] k[facility] 2022-01-18 00:00 Osteoporosis, unspecified [facility] 2022-01-18 00:00 Osteoporosis, unspecified [facility] k[facility] 2022-01-18 00:00 Insomnia, unspecified [facility] kelly 2022-01-18 00:00 Insomnia, unspecified [facility] k[facility] 2022-01-18 00:00 Insomnia, unspecified [facility] k[facility] 2022-01-18 00:00 Disorder of brain, unspecified [facility] 2022-01-18 00:00 Disorder of brain, unspecified [facility] 2022-01-18 00:00 Disorder of brain, unspecified [facility] 2022-01-18 00:00 Disorder of brain, unspecified [facility] 2022-01-18 00:00 Age-related osteoporosis without [facility] current pathological fracture [facility] 2022-01-18 00:00 Age-related osteoporosis without [facility] current pathological fracture [facility] 2022-01-18 00:00 Age-related osteoporosis without [facility] current pathological fracture [facility] 2022-01-19 00:00 Insomnia [facility] k[facility] 2022-01-19 00:00 Osteoporosis [facility] k[facility] 2022-01-19 00:00 Osteoporosis, unspecified [facility] k[facility] 2022-01-19 00:00 Insomnia, unspecified [facility] kelly 2022-01-19 00:00 Age-related osteoporosis without [facility] current pathological fracture [facility] Procedures date description facility 2022-01-18 00:00 Visit Code Hold [facility] 2022-01-18 00:00 Visit Code Hold [facility] 2022-01-18 00:00 Visit Code Hold [facility] 2022-01-18 00:00 Visit Code Hold [facility] Results/Labs No information. Social History date description facility 2022-01-18 00:00 Never smoker [facility] 2022-01-18 00:00 Never smoker [facility] 2022-01-18 00:00 Never smoker [facility] 2022-01-18 00:00 Never smoker [facility] Vital Signs date measurement value units 2022-01-18 00:00 BMI 17.87 kg/m2 2022-01-18 00:00 BP_diastolic 80 mmHg 2022-01-18 00:00 BP_systolic 142 mmHg 2022-01-18 00:00 heart_rate 79 /min 2022-01-18 00:00 height_metric 175.26 cm 2022-01-18 00:00 height_standard 69 in 2022-01-18 00:00 respiration_rate 14 /min 2022-01-18 00:00 temperature_metric 36.44 C 2022-01-18 00:00 temperature_standard 97.6 F 2022-01-18 00:00 weight_metric 54.7 kg 2022-01-18 00:00 weight_standard 120.6 lb
[2022-04-11] MEDS ORDERED: LIDOCAINE PATCH 5% TOP STA (10:53)
--- NOTE | 2022-04-11 12:13 | ED Physician Documentation ---
PD HPI BACK PAIN - Stated complaint Stated Complaint: GLF - Chief complaint Chief Complaint: Trauma Ch/Bk - History obtained from History obtained from: Patient - Additional information Additional information: Patient is an 82-year-old female presenting for evaluation of low back pain that started yesterday afternoon after she fell. Patient was getting off her stationary bike when she lost her balance and fell landing on her buttocks. She did not hit her head or have LOC. She started to have pain in the low back radiating down the left leg. It is worse with ambulating. Her son did help her up and has been assisting her overnight To the bathroom. He states that she has been able to bear weight on her legs but has pain in her low back. He tried to convince her to come be evaluated last night but she did not want to be seen. She does not take a blood thinner. Denies history of prior back problems. Denies pain elsewhere.She does normally use a walker to ambulate. Review of Systems Constitutional: denies: Fever Nose: denies: Congestion Cardiac: denies: Chest pain / pressure Respiratory: denies: Dyspnea GI: denies: Abdominal Pain Musculoskeletal: reports: Back pain Neurologic: denies: Headache PD PAST MEDICAL HISTORY - Past Medical History Past Medical History: Yes Cardiovascular: None Respiratory: None Neuro: None, Other Endocrine/Autoimmune: None GI: None EMR SPECIALIST: None : Incontinence HEENT: Chronic vision loss Psych: None Musculoskeletal: Osteoarthritis Derm: None - Past Surgical History Past Surgical History: Yes HEENT: Cataracts - Present Medications Home Medications: Ambulatory Orders Medication Instructions Recorded Confirmed Calcitonin [Fortical] 1 sprays SAHIL DAILY 14 Days #3.7 ml 04/11/22 Lidocaine Patch 5% [Lidoderm Patch] 1 patch TOP DAILY PRN #10 patch 04/11/22 - Allergies Allergies/Adverse Reactions: Allergies Allergy/AdvReac Type Severity Reaction Status Date / Time penicillin V Allergy Unknown Verified 04/11/22 10:09 Penicillins Allergy Unknown Verified 04/11/22 10:09 Sulfa (Sulfonamide Allergy Unknown Verified 04/11/22 10:09 Antibiotics) - Social History Does the pt smoke?: No Smoking Status: Never smoker Does the pt drink ETOH?: No Does the pt have substance abuse?: No - Immunizations Immunizations are current?: No Immunizations: Other immun not current PD ED PE NORMAL - General General: Alert and oriented X 3, No acute distress, Well developed/nourished - HEENT HEENT: Atraumatic - Neck Neck: Supple, no meningeal sign, No bony TTP, C-Spine cleared by NEXUS criteria - Cardiac Cardiac: RRR - Respiratory Respiratory: No respiratory distress, Clear bilaterally - Abdomen Abdomen: Soft, Non tender - Back Back: Other (Mild low lumbar tenderness to palpation, no step-offs, no deformity) - Extremities Extremities: No deformity, No tenderness to palpate, Normal ROM s pain, Other (Normal range of motion of bilateral hips; Pedal pulses intact, no pelvic instability) - Neuro Neuro: Alert and oriented X 3, gate watchman 2-12 intact, No motor deficit, No sensory deficit, Normal speech Eye Opening: Spontaneous Motor: Obeys Commands Verbal: Oriented GCS Score: 15 Results - Vitals Vitals: Vital Signs - 24 hr 04/11/22 04/11/22 04/11/22 10:09 10:19 12:13 Temperature 37.2 C Heart Rate 70 72 64 Respiratory 18 18 14 Rate Blood Pressure 160/69 H 131/61 H O2 Saturation 99 100 99 Oxygen O2 Source Room air PD Medical Decision Making - ED course Complexity details: reviewed results, d/w patient, d/w family ED course: Pt evaluated for low back pain in setting of recent fall. No head injury and neuro exam is normal. C spine cleared by Nexus criteria. Normal ROM at b/l hips. CT L spine reviewed with L1 and possible L2 compression fx. Pt offered IV and PO pain medication but declined and only wanted lidocaine patch. Did not even want tylenol. No signs of spinal cord injury. She is able to stand and ambulate here with walker. Son and pt are comfortable with plan for discharge and advised on concerning symptoms to return for. Departure - Departure Disposition: 01 Home, Self Care Clinical Impression: Compression fracture of first lumbar vertebra Condition: Stable Instructions: ED Fx Comp Vertebral Follow-Up: ALONSO MOTLEY PA [Primary Care Provider] - Prescriptions: Calcitonin [Fortical] 1 sprays SAHIL DAILY 14 Days #3.7 ml Lidocaine Patch 5% [Lidoderm Patch] 1 patch TOP DAILY PRN #10 patch PRN Reason: pain Comments: CT scan shows that you have a compression fracture of L1 and possibly at L2. I would recommend continuing with the lidocaine patches as well as Tylenol as needed for pain. You have declined anything stronger for pain. I will also send a prescription for calcitonin nasal spray which may help with bone healing. I would recommend follow-up with your primary care doctor. If you have any worsening symptoms please consider return to the emergency department. I have sent your prescriptions to [facility] in [place]. Discharge Date/Time: 04/11/22 14:16
--- NOTE | 2022-04-11 12:20 | CT Report ---
PROCEDURE: LUMBAR SPINE WO INDICATIONS: pain after fall; radiating into L leg TECHNIQUE: Noncontrast 3 mm thick sections acquired from the T12 level to the sacrum. Sagittal and coronal refo rmats were constructed. For radiation dose reduction, the following was used: automated exposure co ntrol, adjustment of mA and/or kV according to patient size. COMPARISON: None FINDINGS: Image quality: Excellent. Bones: There is normal bony alignment. There is an acute superior endplate compression fracture of L 1 with mild bony retropulsion measuring approximately 4 mm without canal stenosis. There is a questio n of a inferior endplate compression fracture versus Schmorl's node of L2 which may also be acute. Th ere is mild vertebral body height loss. There is a mild compression fracture of L5, which may be route driver darrel. No suspicious lytic or blastic bony lesions. Central spinal caliber is of normal overall calibe r. No pars defects. T12-L1: No canal stenosis or foraminal stenosis. L1-L2: No canal stenosis or foraminal stenosis. L2-L3: Posterior osteophyte. No canal stenosis. Mild to moderate right foraminal stenosis. L3-L4: Disc bulge. Facet and ligament hypertrophy. No canal stenosis. L4-L5: Mild anterolisthesis of L4 on L5. Disc bulge. Facet hypertrophy. Mild canal stenosis. Mild b ilateral foraminal stenosis. L5-S1: Bilateral facet hypertrophy. No canal stenosis. Mild left foraminal stenosis. Soft tissues: No retroperitoneal masses or hematomas. Visualized aorta is normal in caliber. IMPRESSION: 1. There is an acute superior endplate compression fracture of L1. 2. There is either an acute inferior endplate compression fracture of L2, or an L2 Schmorl's node, wh ich may be acute as well. 3. An L5 compression is likely chronic. 4. Degenerative changes as described above, with mild canal stenosis at L4-L5. Comment: Lumbar spine MRI may be helpful. Reviewed by: Rony Walker MD on 04/11/2022 12:18 PM PST Approved by: Rony Walker MD on 04/11/2022 12:18 PM PST Station ID: [id number]
[2022-04-11 12:35] VITALS: BP 131/61
== END 2022-04-11 14:16 | disposition home or self-care (01) ==
LOC: EDUNIT# → ED 09:57
DX: S32.019A Unspecified fracture of first lumbar vertebra, initial encounter for closed fracture (principal); W17.89XA Other fall from one level to another, initial encounter; Y93.A1 Activity, exercise machines primarily for cardiorespiratory conditioning
CPT/HCPCS: 72131; 99283; 99284; A9270

== ENCOUNTER 2023-06-06 10:14 | Outpatient (CLI) | payer MEDICARE | END 2023-06-06 23:59 | disposition critical access hospital (66) | LOC: EMS 10:14 | DX: M25.551 Pain in right hip (principal); W19.XXXA Unspecified fall, initial encounter; Y92.009 Unspecified place in unspecified non-institutional (private) residence as the place of occurrence of the external cause | CPT/HCPCS: A0425; A0429 ==

== ENCOUNTER 2023-06-06 10:50 | Emergency (ER) | payer MEDICARE ==
--- NOTE | 2023-06-06 11:15 | ED Physician Documentation ---
PD HPI LOWER EXT INJURY - Stated complaint Stated Complaint: R HIP PX - Chief complaint Chief Complaint: Back Pain - History obtained from History obtained from: Patient - History of Present Illness PD HPI LOW EXT INJURY LOCATION: Right - Additional information Additional information: 83-year-old woman presents with her roommate for the evaluation of a right hip injury. 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 She fell about a week ago and landed on her right hip and has minimal pain at rest but has some pain intermittently especially when walking. She needs a walker to walk but she usually used a walker even prior to the fall a week ago. No other injuries. 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 : Incontinence HEENT: Chronic vision loss Psych: None Musculoskeletal: Osteoarthritis Derm: None - Past Surgical History Past Surgical History: Yes HEENT: Cataracts - Present Medications Home Medications: Ambulatory Orders Medication Instructions Recorded Confirmed Calcitonin [Fortical] 1 sprays SAHIL DAILY 14 Days #3.7 ml 04/11/22 Lidocaine Patch 5% [Lidoderm Patch] 1 patch TOP DAILY PRN #10 patch 04/11/22 - Allergies Allergies/Adverse Reactions: Allergies Allergy/AdvReac Type Severity Reaction Status Date / Time penicillin V Allergy Unknown Verified 06/06/23 10:59 Penicillins Allergy Unknown Verified 06/06/23 10:59 Sulfa (Sulfonamide Allergy Unknown Verified 06/06/23 10:59 Antibiotics) - Social History Does the pt smoke?: No Smoking Status: Never smoker Does the pt drink ETOH?: No Does the pt have substance abuse?: No - Immunizations Immunizations are current?: No Immunizations: Other immun not current PD ED PE NORMAL - Vitals Vital signs reviewed: Yes - General General: Alert and oriented X 3, No acute distress - Neck Neck: Supple, no meningeal sign, No bony TTP - Derm Derm: Normal color, Warm and dry - Extremities Extremities: Other (I am not able to elicit any tenderness of the right hip. There is no pain with internal and external rotation. No tenderness to pelvic compression. No shortening of the leg on the right or rotation. Normal pedal pulses and sensation.) - Neuro Neuro: Alert and oriented X 3, Normal speech Results - Vitals Vitals: Vital Signs - 24 hr 06/06/23 10:53 Temperature 36.2 C L Heart Rate 75 Respiratory 14 Rate Blood Pressure 183/83 H O2 Saturation 99 Oxygen O2 Source Room air - Rads (name of study) CT Hip and XR Hip Relevant Findings:: Final report received, EMP independent interpretation of test PD Medical Decision Making - ED course ED course: 83-year-old woman with concern for hip pain in a week after a fall. She has been ambulating on it and clinically does not have a hip fracture with minimal tenderness and painless internal and external rotation. Initial hip imaging with x-ray demonstrated a possible impaction fracture, so this was followed with CT imaging demonstrating pubic rami and possibly a sacral fracture. Departure - Departure Disposition: 01 Home, Self Care Clinical Impression: Pubic ramus fracture Qualifiers: Encounter type: initial encounter Fracture type: closed Laterality: right Qualified Code(s): S32.591A - Other specified fracture of right pubis, initial encounter for closed fracture Condition: Good Record reviewed to determine appropriate education?: Yes Instructions: ED Fx Pelvis Comments: You were seen today for concern for hip pain after a fall. Thankfully there was no hip fracture, that said there was fractures of the pubic rami and possibly the sacrum. The formal CT read follows. You can do gentle range of motion exercises and it is okay to continue to walk on it as tolerated. Follow-up with your doctor in a week for recheck with consideration for referral for physical therapy. Return for new or worsening symptoms. Tylenol as needed for pain. CT Read: PT NAME: NICOLA SOLORIO MR#: [id number] REG ER/ED AGE: 83 CI DT/TM: 06/06/23 PCP: DENISSE PAREKH : 1940 ATT: SEX: F ORD: Dominick andres MD EXAM: [id number] CT/LERWO ([id number]) PROCEDURE: Lower Extremity RT WO INDICATIONS: hip injury TECHNIQUE: Noncontrast 3-mm axial sections acquired from the distal tibial shaft to the talar dome, with coronal and sagittal reformats. For radiation dose reduction, the following was used: automated exposure control, adjustment of mA and/or kV according to patient size. COMPARISON: CT of lumbar spine dated 04/11/2022 and pelvic and hip radiograph dated 06/06/2023. FINDINGS: Image quality: Excellent. Bones: Acute comminuted fracture involving lateral portion of right superior pubic ramus extending to involve anterior and medial wall of right acetabulum with minimal anterior and lateral displacement of the fracture fragments. Slightly comminuted fracture is also noted involving mid shaft of right inferior pubic ramus with slight anterior displacement of fracture fragments. No acute femoral neck fracture or dislocation. Right hip joint osteoarthritic changes are seen with joint space narrowing and subchondral sclerosis. No evidence of avascular necrosis of femoral head. Subtle step off involving anterior cortex of right sacral adjacent to sacroiliac joint is seen series 6 image 18 concerning for subtle insufficiency fracture in this area. No suspicious bony lesions. Soft tissues: There is soft tissue swelling surrounding the right superior and inferior pubic ramus fracture sites. No significant joint effusion or calcified intra-articular loose bodies. No pelvic free fluid of free air. No large intramuscular hematoma or drainable fluid collection. Impression: 1. Acute comminuted and slightly displaced fractures involving right superior and inferior pubic rami as described above. 2. Subtle irregularity involving right anterior sacrum concerning for a subtle insufficiency fracture in this area suggest clinical correlation and follow-up. 3. Right hip joint osteoarthritis. No right femoral neck fracture or dislocation. No evidence of avascular necrosis of femoral head. 4. No large drainable fluid collection or intramuscular hematoma. No abnormal soft tissue calcifications. No pelvic free fluid of free air.
--- NOTE | 2023-06-06 11:53 | XRAY Report ---
PROCEDURE: Hip w/Pelvis 2-3V RT INDICATIONS: hip inj TECHNIQUE: An AP view of the pelvis and a lateral view of the right hip were acquired. COMPARISON: None. FINDINGS: Bones: Question subtle impacted fracture of the right femoral neck. However, this is not definite. N o suspicious bony lesions. Soft tissues: No suspicious soft tissue calcifications or masses. IMPRESSION: Question impacted right femoral neck fracture. This is not definite. Recommend CT pelvis/hip if suspect right femoral neck fracture. Reviewed by: Rony Walker MD on 06/06/2023 11:52 AM PDT Approved by: Rony Walker MD on 06/06/2023 11:52 AM PDT Station ID: [id number]
--- NOTE | 2023-06-06 14:40 | CT Report ---
PROCEDURE: Lower Extremity RT WO INDICATIONS: hip injury TECHNIQUE: Noncontrast 3-mm axial sections acquired from the distal tibial shaft to the talar dome, with coronal and sagittal reformats. For radiation dose reduction, the following was used: automated exposure c ontrol, adjustment of mA and/or kV according to patient size. COMPARISON: CT of lumbar spine dated 04/11/2022 and pelvic and hip radiograph dated 06/06/2023. FINDINGS: Image quality: Excellent. Bones: Acute comminuted fracture involving lateral portion of right superior pubic ramus extending t o involve anterior and medial wall of right acetabulum with minimal anterior and lateral displacement of the fracture fragments. Slightly comminuted fracture is also noted involving mid shaft of right i nferior pubic ramus with slight anterior displacement of fracture fragments. No acute femoral neck fr acture or dislocation. Right hip joint osteoarthritic changes are seen with joint space narrowing and subchondral sclerosis. No evidence of avascular necrosis of femoral head. Subtle step off involving anterior cortex of right sacral adjacent to sacroiliac joint is seen series 6 image 18 concerning for subtle insufficiency fracture in this area. No suspicious bony lesions. Soft tissues: There is soft tissue swelling surrounding the right superior and inferior pubic ramus fracture sites. No significant joint effusion or calcified intra-articular loose bodies. No pelvic fr ee fluid of free air. No large intramuscular hematoma or drainable fluid collection. Impression: 1. Acute comminuted and slightly displaced fractures involving right superior and inferior pubic rami as described above. 2. Subtle irregularity involving right anterior sacrum concerning for a subtle insufficiency fracture in this area suggest clinical correlation and follow-up. 3. Right hip joint osteoarthritis. No right femoral neck fracture or dislocation. No evidence of avas cular necrosis of femoral head. 4. No large drainable fluid collection or intramuscular hematoma. No abnormal soft tissue calcificati ons. No pelvic free fluid of free air. Reviewed by: Iftikhar Pantoja MD on 06/06/2023 2:38 PM PDT Approved by: Iftikhar Pantoja MD on 06/06/2023 2:38 PM PDT Station ID: [id number]
[2023-06-06 16:03] VITALS: BP 146/78; O2SAT 100
== END 2023-06-06 15:56 | disposition home or self-care (01) ==
LOC: EDUNIT# → SUPCPDRO 10:50 → ED 10:50
DX: S32.511A Fracture of superior rim of right pubis, initial encounter for closed fracture (principal); W19.XXXA Unspecified fall, initial encounter; Y92.9 Unspecified place or not applicable
CPT/HCPCS: 99284

== ENCOUNTER 2023-06-06 15:58 | Outpatient (CLI) | payer MEDICARE | END 2023-06-06 15:59 | disposition home or self-care (01) | LOC: EMS 15:58 | PROVIDERS: ATTEND Emergency Medicine | DX: S32.591A Other specified fracture of right pubis, initial encounter for closed fracture (principal); W19.XXXA Unspecified fall, initial encounter | CPT/HCPCS: A0425; A0428 ==